=== PATIENT | male | born 1985 | race Caucasian/White ===

== ENCOUNTER 2019-06-03 17:15 | Emergency (ER) | payer SELFPAY ==
[~2019-06-03] VITALS: Ht 172.7 cm; Wt 113.0 kg
[2019-06-03 17:24] VITALS: BP 123/62
== END 2019-06-03 20:30 | disposition left against medical advice (07) ==
LOC: ER 17:15
DX: Z53.21 Procedure and treatment not carried out due to patient leaving prior to being seen by health care provider (principal)